=== PATIENT | female | born 1935 | race Caucasian/White ===

== ENCOUNTER → 2017-02-21 | Outpatient (CLI) | payer MEDICARE, OTHER ==
--- NOTE | 2017-02-21 08:18 | MR ---
EXAMINATION TYPE: MR brain wo con DATE OF EXAM: 02/21/2017 8:02 AM COMPARISON: NONE HISTORY: Headaches, Memory loss TECHNIQUE: Multiplanar, multisequence imaging of the brain and brainstem is performed without IV cont rast. FINDINGS: Diffusion weighted images demonstrate no evidence of a recent infarct or other diffusion abnormality. There is no worrisome extra-axial fluid collection. There is mild ventricular and sulcal prominence c onsistent with mild diffuse age-related cerebral atrophy. There are several small scattered foci T2 h yperintensity seen throughout the white matter bilaterally. Approximately 20-30 scattered lesions are seen in the periventricular and deep white matter. Lesions are nonspecific in appearance and distrib ution but most likely on basis of product of chronic small vessel ischemic change in patient this age . Midline structures demonstrate normal morphology. The craniocervical junction appears within normal limits. Normal vascular flow voids are present. Slightly tortuous course to distal right vertebral ar [place] is present There is 2.6 cm mucous retention cyst or polyp in the inferior left maxillary sinus o therwise paranasal sinuses are clear. The globes are intact bilaterally. IMPRESSION: 1. Mild diffuse cerebral atrophy and mild to moderate chronic small vessel ischemic change. No eviden ce of acute or significant old infarct.
== END ==
LOC: RADMRIMAIN 07:07
PROVIDERS: ATTEND Psychiatry & Neurology Neurology
DX: G31.9 Degenerative disease of nervous system, unspecified (principal); I67.82 Cerebral ischemia
CPT/HCPCS: 70551

== ENCOUNTER → 2017-04-22 | Outpatient (CLI) | payer MEDICARE, OTHER ==
[2017-04-22 10:33] LABS: CH 32.7; CHCM 32.1; HCT 40.5 % (34.0-46.0); HDW 2.38; HGB 13.1 gm/dL (11.4-16.0); MCH 33.1 pg (25.0-35.0); MCHC 32.3 g/dL (31.0-37.0); MCV 102.5 fL (80.0-100.0); Macrocytosis Slight; Mean Platelet Volume 7.3; RBC 3.95 m/uL (3.80-5.40); RDW 13.7 % (11.5-15.5); WBC 7.4 k/uL (3.8-10.6)
[2017-04-22 10:49] LABS: ALT 35 U/L (9-52); AST 22 U/L (14-36); Alkaline Phosphatase 75 U/L (38-126); Anion Gap 12 mmol/L; Blood Urea Nitrogen 20 mg/dL (7-17); Calcium 10.8 mg/dL (8.4-10.2); Carbon Dioxide 27 mmol/L (22-30); Chloride 105 mmol/L (98-107); Glucose 99 mg/dL (74-99); Non-African American GFR(MDRD) 43 (>60 ml/min/1.73 sqM); Potassium 4.7 mmol/L (3.5-5.1); Sodium 144 mmol/L (137-145); Total Bilirubin 0.6 mg/dL (0.2-1.3); Total Protein 6.8 g/dL (6.3-8.2)
[2017-04-22 11:55] LABS: Vitamin B12 585 pg/mL
== END | disposition home or self-care (01) ==
LOC: LABWHC1 09:55
PROVIDERS: ATTEND Psychiatry & Neurology Pain Medicine
DX: R41.3 Other amnesia (principal)
CPT/HCPCS: 36415; 80053; 82306; 82607; 82746; 83090; 84439; 84443; 84481; 85027

== ENCOUNTER → 2017-07-17 | Outpatient (CLI) | payer MEDICARE, OTHER ==
[2017-07-17 08:36] LABS: CH 33.6; CHCM 31.9; HCT 38.9 % (34.0-46.0); HDW 2.39; HGB 12.4 gm/dL (11.4-16.0); MCH 33.7 pg (25.0-35.0); MCHC 31.8 g/dL (31.0-37.0); MCV 106.1 fL (80.0-100.0); Macrocytosis Moderate; Mean Platelet Volume 7.8; RBC 3.67 m/uL (3.80-5.40); WBC 6.4 k/uL (3.8-10.6)
[2017-07-17 09:00] LABS: Potassium 4.3 mmol/L (3.5-5.1)
[2017-07-17 09:01] LABS: Calcium 10.1 mg/dL (8.4-10.2); Total Bilirubin 0.5 mg/dL (0.2-1.3); Total Protein 6.4 g/dL (6.3-8.2)
[2017-07-17 15:43] LABS: Iron Saturation 34.08 (12.00-45.00)
== END | disposition home or self-care (01) ==
LOC: LABWHC1 08:09
PROVIDERS: ATTEND Psychiatry & Neurology Pain Medicine
DX: R53.83 Other fatigue (principal); R41.3 Other amnesia
CPT/HCPCS: 36415; 80053; 82306; 82728; 83036; 83540; 83550; 83970; 84466; 84590; 85027

== ENCOUNTER → 2017-10-07 | Outpatient (CLI) | payer MEDICARE, OTHER ==
[2017-10-07 09:42] LABS: HCT 40.1 % (34.0-46.0); HGB 12.6 gm/dL (11.4-16.0); Hypochromasia Slight; MCH 32.2 pg (25.0-35.0); MCHC 31.3 g/dL (31.0-37.0); MCV 102.8 fL (80.0-100.0); Macrocytosis Slight; Mean Platelet Volume 7.4; Platelet Count 198 k/uL (150-450); RDW 14.9 % (11.5-15.5)
[2017-10-07 09:54] LABS: Albumin 3.8 g/dL (3.5-5.0); Calcium 10.5 mg/dL (8.4-10.2); Potassium 4.7 mmol/L (3.5-5.1); Total Bilirubin 0.5 mg/dL (0.2-1.3); Total Protein 6.3 g/dL (6.3-8.2)
[2017-10-07 16:08] LABS: Vitamin D 25 Hydroxy 24.3 ng/mL (30.0-100.0)
[2017-10-07 18:49] LABS: Hemoglobin A1C 5.9 % (4.0-6.0)
== END | disposition home or self-care (01) ==
LOC: LABWHC1 08:51
PROVIDERS: ATTEND Psychiatry & Neurology Pain Medicine
DX: R41.3 Other amnesia (principal); Z79.899 Other long term (current) drug therapy
CPT/HCPCS: 36415; 80053; 82306; 83036; 83970; 84590; 85027

== ENCOUNTER → 2017-12-10 | Outpatient (CLI) | payer MEDICARE, OTHER ==
--- NOTE | 2017-12-10 16:22 | XR ---
Lumbar spine HISTORY: Low back pain, M [age] 3 views of the lumbar spine There is a levoscoliosis centered at L2-3. Multilevel spondylosis, loss of disc height at the interve rtebral levels is noted with associated vacuum phenomenon. Lumbar vertebral bodies show preserved hei ght. Bone mineralization is reduced. Sclerosis present in the posterior elements. Vascular calcificat ions noted incidentally. Right paraspinal location shows an indeterminate calcification measuring tiffany roximately 7 mm. Some sclerosis in the sacroiliac joints may be due to stress change. IMPRESSION: Degenerative disc disease, facet arthropathy, scoliosis. Additional findings above.
--- NOTE | 2017-12-10 16:24 | XR ---
EXAMINATION TYPE: XR chest 2V DATE OF EXAM: 12/10/2017 COMPARISON: NONE HISTORY: Cough, J [age] TECHNIQUE: Frontal and lateral views of the chest are obtained. FINDINGS: There is no focal air space opacity, pleural effusion, or pneumothorax seen. The cardiac silhouette size is within normal limits. Bronchial wall thickening is noted. Some prominence of the pulmonary artery suspected. Patient is rotated. Suspect prior left mastectomy. The osseous structures are intact. IMPRESSION: Correlate for bronchitis, reactive airways disease, there could be underlying pulmonary artery hypertension.
== END | disposition home or self-care (01) ==
LOC: RADXRMAIN 14:17
PROVIDERS: ATTEND Internal Medicine Geriatric Medicine
DX: J20.9 Acute bronchitis, unspecified (principal); M51.36 Other intervertebral disc degeneration, lumbar region; M47.816 Spondylosis without myelopathy or radiculopathy, lumbar region; M46.92 Unspecified inflammatory spondylopathy, cervical region
CPT/HCPCS: 71046; 72100

== ENCOUNTER → 2018-01-22 | Outpatient (CLI) | payer MEDICARE, OTHER ==
--- NOTE | 2018-01-22 11:41 | MR ---
EXAMINATION TYPE: MR lumbar spine wo/w con DATE OF EXAM: 01/22/2018 COMPARISON: Plain film 12/10/2017 HISTORY: Spinal Stenosis TECHNIQUE: Multiplanar, multisequence images of the lumbar spine were acquired utilizing [address] gadolinium contrast. L1-L2: Hypertrophic change of the facets causes encroachment on the lateral recesses. Circumferential extension of endplate disc complex causes bilateral foraminal encroachment. Anterior mass effect on the thecal sac is noted due to circumferential broad-based disc bulge, there is mild to moderate cent ral stenosis. L2-L3: Facet arthropathy with hypertrophy ligamentum flavum encroaches on the lateral recesses. There is a trefoil appearance of the thecal sac. Circumferential extension of endplate disc complex causes mild anterior mass effect on the thecal sac, minimal encroachment on the neural foramina. L3-L4: Circumferential extension of endplate disc complex causes anterior mass effect on the thecal s ac and extends to cause foraminal encroachment right and left. Facet arthropathy causes a trefoil tiffany earance of the thecal sac, only mild central stenosis. L4-L5: Facet arthropathy with hypertrophy of the facet greater on the left the right mass effect post erior laterally, encroachment on the lateral recesses, circumferential extension of endplate disc com plex is accentuated by the scoliosis, there is foraminal encroachment left greater than right. No sig nificant central canal stenosis. Mild anterior mass effect on the thecal sac due to endplate disc com plex. L5-S1: Facet arthropathy changes present. Circumferential extension of endplate disc complex encroach es somewhat on the neural foramina on the left. No significant central stenosis. Broad-based posterio r disc bulge causes minimal anterior mass effect on the thecal sac. Lumbar segments are intact. No paraspinal masses are identified. Conus medullaris has a normal appe arance. There is a levoscoliosis present. Multilevel spondylosis is present with endplate discogenic marrow signal change, loss of disc height signal vacuum phenomenon present at the intervertebral leve ls. Cortical cyst within the evaluated within the left kidney measures approximately 2.6 cm. No abnor mal enhancement following contrast administration. IMPRESSION: Scoliosis, degenerative disc disease, multilevel facet arthropathy and foraminal encroachment.
== END ==
LOC: RADMRIMAIN 07:28
PROVIDERS: ATTEND Internal Medicine Geriatric Medicine
DX: M41.9 Scoliosis, unspecified (principal); M51.36 Other intervertebral disc degeneration, lumbar region; M46.96 Unspecified inflammatory spondylopathy, lumbar region
CPT/HCPCS: 82565; 84520; 72158; A9581

== ENCOUNTER → 2019-05-11 | Outpatient (CLI) | payer MEDICARE, OTHER | END | disposition home or self-care (01) | LOC: LABWHC1 09:08 | PROVIDERS: ATTEND Psychiatry & Neurology Pain Medicine | DX: Z51.81 Encounter for therapeutic drug level monitoring (principal) | CPT/HCPCS: 36415; 82310 ==